=== PATIENT | male | born 1980 | race Caucasian/White ===

== ENCOUNTER 2025-10-22 16:05 | Emergency (ER) | payer SELFPAY ==
--- NOTE | ~2025-10-22 | XR_ITS ---
EXAMINATION: XR chest 2V 10/22/2025 16:47 INDICATION: Chest palpitations PROCEDURE: 2 view chest COMPARISON: No prior studies for comparison. FINDINGS: The lungs are clear. The cardiomediastinal silhouette is within normal limits. There are no pleural effusions. There is no pneumothorax suspected. There is scoliosis. There are cholecystectomy clips. IMPRESSION: 1: NO ACUTE CARDIOPULMONARY DISEASE. Reviewed, dictated and finalized at location [facility]. [employer]IST
--- NOTE | 2025-10-22 16:12 | ED_ITS ---
HPI - Chest Pain General Chief Complaint: Chest Pain <HUMAIRA Chandler Last Filed: 10/22/25 16:22> Stated Complaint: palpatations hr over 100 chest pain <HUMAIRA Chandler Last Filed: 10/22/25 16:22> Time Seen by Provider: 10/22/25 16:13 <HUMAIRA Chandler Last Filed: 10/22/25 16:22> Focused HPI: Patient is a 45 y/o male, with PMH of HLD, DM, who presents to the ED with c/o palpitations and chest tightness. Patient reports he began feeling dizzy on Tuesday. He checked his pulse at that time and states his pulse was over 100 BPM. States he checked his pulse several times throughout the day and HR persistently elevated above 100- ranging from 105-115. Has had 1 previous episode of similar sx's in the past which was thought to be related to Rybelsus, which was a new medication at that time. Denies currently feeling his heart race. Does report slight dizziness currently. C/o chest tightness. Denies SOB. Does not see a retail cosmetics sales beauty advisor. Denies smoking. FHx of heart disease in mother. GENERAL: Well-appearing, well-nourished, and in no acute distress. HEAD: Normocephalic, atraumatic. CHEST: Clear to auscultation. ?No respiratory distress. HEART: Tachycardic with regular rhythm.? NEURO: ?Alert and oriented x3. Patient screened in triage and initial orders placed.? ?Additional care and disposition to be based upon?diagnostic testing and treatment. <HUMAIRA Chandler Last Filed: 10/22/25 16:22> Source: patient <HUMAIRA Chandler Last Filed: 10/22/25 16:22> Mode of arrival: ambulatory <HUMAIRA Chandler Last Filed: 10/22/25 16:22> Limitations: no limitations <HUMAIRA Chandler Last Filed: 10/22/25 16:22> History of Present Illness HPI narrative: agree with the HPI above <Dane Marie MD - Last Filed: 10/23/25 04:44> Related Data Allergies/Adverse Reactions: Allergies Allergy/AdvReac Type Severity Reaction Status Date / Time No Known Allergies Allergy Mild Unverified 09/21/08 16:39 <Mary Daley PA-C - Last Filed: 10/22/25 16:22> Review of Systems 2 Review of Systems: as reviewed above in HPI <Dane Marie MD - Last Filed: 10/23/25 04:44> All systems reviewed & are unremarkable except as noted in HPI and below < Dane Marie MD - Last Filed: 10/23/25 04:44> Exam 2 Narrative: GENERAL: [Well-appearing, well-nourished, and in no acute distress.] HEAD: [Normocephalic, atraumatic.] EYES: [PERRLA and EOMI.] ENT: Nares clear, no rhinorrhea or epistaxis. Mucous membranes moist. NECK: Supple. CHEST: [Clear to auscultation. No respiratory distress.] HEART: [Regular rate and rhythm]. No murmur heard. [Normal peripheral pulses.] ABDOMEN: [Soft, nondistended], [nontender], [No rigidity or guarding] EXTREMITIES: Normal range of motion. [No edema.] SKIN: Warm, dry, no rash. NEURO: [No focal deficits]. Alert and oriented [x3.] PSYCH: [Normal mood and affect.] <Dane Marie MD - Last Filed: 10/23/25 04:44> Course Vital Signs Vital signs: Vital Signs Temperature 36.4 C 10/22/25 16:21 Pulse Rate 114 H 10/22/25 16:21 Respiratory Rate 17 10/22/25 16:21 Blood Pressure 159/77 H 10/22/25 16:21 Pulse Oximetry 100 10/22/25 16:21 Oxygen Delivery Room Air 10/22/25 16:21 Temperature 36.3 C L 10/22/25 22:50 Pulse Rate 88 10/23/25 00:23 Respiratory Rate 15 10/23/25 00:23 Blood Pressure 135/98 H 10/23/25 00:23 Pulse Oximetry 99 10/23/25 00:23 Oxygen Delivery Room Air 10/23/25 00:19 <Mary Daley PA-C - Last Filed: 10/22/25 16:22> Vital Signs Temperature 36.4 C 10/22/25 16:21 Pulse Rate 114 H 10/22/25 16:21 Respiratory Rate 17 10/22/25 16:21 Blood Pressure 159/77 H 10/22/25 16:21 Pulse Oximetry 100 10/22/25 16:21 Oxygen Delivery Room Air 10/22/25 16:21 Temperature 36.3 C L 10/22/25 22:50 Pulse Rate 88 10/23/25 00:23 Respiratory Rate 15 10/23/25 00:23 Blood Pressure 135/98 H 10/23/25 00:23 Pulse Oximetry 99 10/23/25 00:23 Oxygen Delivery Room Air 10/23/25 00:19 <Dane Marie MD - Last Filed: 10/23/25 04:44> MDM MDM Narrative Medical decision making narrative: MSE by YOKO in triage <Mary Daley PA-C - Last Filed: 10/22/25 16:22> MSE by YOKO in triage. 45 y/o male, with PMH of HLD, DM, who presents to the ED with c/o palpitations and chest tightness. Patient reports he began feeling dizzy on Tuesday. He checked his pulse at that time and states his pulse was over 100 BPM. States he checked his pulse several times throughout the day and HR persistently elevated above 100- ranging from 105-115. Has had 1 previous episode of similar sx's in the past which was thought to be related to Rybelsus, which was a new medication at that time. Denies currently feeling his heart race. Does report slight dizziness currently. C/o chest tightness. Denies SOB. Does not see a retail cosmetics sales beauty advisor. Denies smoking. FHx of heart disease in mother. patient has a benign physical examination. No tachycardia present. No symptoms at this time but he states heart rate has been elevated 110s. No significant elevations above this. No fever. No hypoxemia or significant blood pressure concerns. Possibility some dehydration versus electrolyte abnormality versus low suspicion cardiac in origin. Cardiac workup obtained and dimer/troponin are negative as well as a normal EKG and chest x-ray. Normal electrolytes. No acute findings or emergent concerns. Safe for discharge with PCP follow-up for further care. Return precautions described. <Dane Marie MD - Last Filed: 10/23/25 04:44> Differential Diagnosis Differential Diagnosis: Possibility some dehydration versus electrolyte abnormality versus low suspicion cardiac in origin. <Dane Marie MD - Last Filed: 10/23/25 04:44> Lab Data Result diagrams: 10/22/25 16:38 10/22/25 16:38 <Mary Daley PA-C - Last Filed: 10/22/25 16:22> Labs: Lab Results 10/22/25 10/22/25 Range/Units 16:38 23:46 WBC 10.1 H (4.5-10.0) K/mm3 RBC 4.91 (4.6-6.20) M/mm3 Hgb 15.0 (14.0-18.0) g/dL Hct 42.5 (42.0-52.0) % MCV 86.6 (80-100) fl MCH 30.5 (26-34) pg MCHC 35.3 (32-36) g/dl RDW 11.9 (11.5-14.5) % Plt Count 260 (150-375) k/mm3 MPV 9.9 (7.4-10.4) fl Immature Gran % (Auto) 0.3 (0-0.5) % Neut % (Auto) 80.1 H (45.5-73.1) % Lymph % (Auto) 12.9 L (18.3-44.2) % [place] % (Auto) 5.5 (2.6-8.5) % Eos % (Auto) 0.7 (0-4.4) % Baso % (Auto) 0.5 (0.2-1.2) % Lymph # (Auto) 1.30 (0.9-3.2) K/mm3 [place] # (Auto) 0.6 (0.1-0.6) K/mm3 Eos # (Auto) 0.1 (0-0.3) K/mm3 Baso # (Auto) 0.1 (0.0-0.1) K/mm3 Abs Immat Gran (auto) 0.03 (0.00-0.031) K/mm3 Absolute Neuts (auto) 8.1 H (1.3-6.7) K/mm3 Absolute Nucleated RBC 0.000 (0.0-0.012) K/mm3 Nucleated RBC % 0.0 (0.0-0.2) % PT 13.4 (11.1-14.7) Seconds INR 1.0 APTT 27.4 (22.3-36.8) Seconds D-Dimer < 0.27 (<0.48) ug/mL Sodium 138 (137-145) mmol/L Potassium 4.2 (3.4-5.0) mmol/L Chloride 103 (98-107) mmol/L Carbon Dioxide 27 (22-30) mmol/L Anion Gap 8 (4-12) mmol/L BUN 16 (9-20) mg/dL Creatinine 0.88 (0.7-1.3) mg/dL Estim Creat Clear Calc 101 ml/min Estimated GFR > 60 (59 - ) Glucose 110 (65-110) mg/dL Calcium 9.8 (8.4-10.2) mg/dL Magnesium 2.0 (1.6-2.3) mg/dL Total Bilirubin 1.0 (0.2-1.3) mg/dL AST 25 (17-59) U/L ALT 23 (6-50) U/L Alkaline Phosphatase 59 (38-126) U/L Troponin I < 0.012 < 0.012 (0.000-0.034) ng/mL Total Protein 7.6 (6.3-8.2) g/dL Albumin 4.7 (3.5-5.1) g/dL TSH (Reflex) 1.300 (0.465-4.68) uIU/mL <Mary Daley PA-C - Last Filed: 10/22/25 16:22> Lab Results 10/22/25 10/22/25 Range/Units 16:38 23:46 WBC 10.1 H (4.5-10.0) K/mm3 RBC 4.91 (4.6-6.20) M/mm3 Hgb 15.0 (14.0-18.0) g/dL Hct 42.5 (42.0-52.0) % MCV 86.6 (80-100) fl MCH 30.5 (26-34) pg MCHC 35.3 (32-36) g/dl RDW 11.9 (11.5-14.5) % Plt Count 260 (150-375) k/mm3 MPV 9.9 (7.4-10.4) fl Immature Gran % (Auto) 0.3 (0-0.5) % Neut % (Auto) 80.1 H (45.5-73.1) % Lymph % (Auto) 12.9 L (18.3-44.2) % [place] % (Auto) 5.5 (2.6-8.5) % Eos % (Auto) 0.7 (0-4.4) % Baso % (Auto) 0.5 (0.2-1.2) % Lymph # (Auto) 1.30 (0.9-3.2) K/mm3 [place] # (Auto) 0.6 (0.1-0.6) K/mm3 Eos # (Auto) 0.1 (0-0.3) K/mm3 Baso # (Auto) 0.1 (0.0-0.1) K/mm3 Abs Immat Gran (auto) 0.03 (0.00-0.031) K/mm3 Absolute Neuts (auto) 8.1 H (1.3-6.7) K/mm3 Absolute Nucleated RBC 0.000 (0.0-0.012) K/mm3 Nucleated RBC % 0.0 (0.0-0.2) % PT 13.4 (11.1-14.7) Seconds INR 1.0 APTT 27.4 (22.3-36.8) Seconds D-Dimer < 0.27 (<0.48) ug/mL Sodium 138 (137-145) mmol/L Potassium 4.2 (3.4-5.0) mmol/L Chloride 103 (98-107) mmol/L Carbon Dioxide 27 (22-30) mmol/L Anion Gap 8 (4-12) mmol/L BUN 16 (9-20) mg/dL Creatinine 0.88 (0.7-1.3) mg/dL Estim Creat Clear Calc 101 ml/min Estimated GFR > 60 (59 - ) Glucose 110 (65-110) mg/dL Calcium 9.8 (8.4-10.2) mg/dL Magnesium 2.0 (1.6-2.3) mg/dL Total Bilirubin 1.0 (0.2-1.3) mg/dL AST 25 (17-59) U/L ALT 23 (6-50) U/L Alkaline Phosphatase 59 (38-126) U/L Troponin I < 0.012 < 0.012 (0.000-0.034) ng/mL Total Protein 7.6 (6.3-8.2) g/dL Albumin 4.7 (3.5-5.1) g/dL TSH (Reflex) 1.300 (0.465-4.68) uIU/mL <Dane Marie MD - Last Filed: 10/23/25 04:44> Imaging Data Radiologist's impression: ITS Impressions Chest X-Ray 10/22/25 16:51 IMPRESSION: 1: NO ACUTE CARDIOPULMONARY DISEASE. <Mary Daley PA-C - Last Filed: 10/22/25 16:22> ITS Impressions Chest X-Ray 10/22/25 16:51 IMPRESSION: 1: NO ACUTE CARDIOPULMONARY DISEASE. <Dane Marie MD - Last Filed: 10/23/25 04:44> Discharge Plan Discharge Clinical Impression: Heart palpitations, Episodic lightheadedness <Mary Daley PA-C - Last Filed: 10/22/25 16:22> Patient Disposition: Home <Mary Daley PA-C - Last Filed: 10/22/25 16:22> Condition: Stable <HUMAIRA Chandler Last Filed: 10/22/25 16:22> Instructions: Antibiotic Form, Heart Palpitations (DC) <HUMAIRA Chandler Last Filed: 10/22/25 16:22> Additional Instructions: laboratory studies and cardiac enzymes are normal. EKG unremarkable. No emergent concerns today so please follow-up with your regular primary care provider after this visit for further recommendations and they might refer you to a retail cosmetics sales beauty advisor for further evaluation of this is a persistent concern. Return with any emergent issues such as losing consciousness, chest pressure/pain, stroke symptoms. <Mary Daley PA-C - Last Filed: 10/22/25 16:22> Patient Language: Bulgarian <Mary Daley PA-C - Last Filed: 10/22/25 16:22> Follow-up/Referrals: PHYSICIAN,[employer] CONTROL ROOM OPERATOR [Primary Care Provider, Internal Medicine] <Mary Daley PA-C - Last Filed: 10/22/25 16:22> Time of Disposition: 00:30 <Mary Daley PA-C - Last Filed: 10/22/25 16:22> 00:30 <Dane Marie MD - Last Filed: 10/23/25 04:44>
--- NOTE | 2025-10-22 16:13 | ECG_ITS ---
Test Date: 2025-10-22 16:16:20 Measurements Intervals [place] Rate: 116 P: 55 NV: 155 QRS: 37 QRSD: 75 T: 29 QT: 301 QTc: 420 Interpretive Statements SINUS TACHYCARDIA BORDERLINE R WAVE PROGRESSION, ANTERIOR LEADS ABNORMAL ECG No previous ECG available for comparison Electronically Signed On 10-22-2025 19:07:26 [employer]SEMBLER [employer]ER by Casey Woods D.O.
[2025-10-22 16:21] VITALS: BP 159/77; PULSE 114; RESP 17; TEMP 36.4; O2SAT 100
[2025-10-22 16:58] LABS: Alanine Aminotransferase 23 U/L (6-50); Albumin Level 4.7 g/dL (3.5-5.1); Alkaline Phosphatase 59 U/L (38-126); Anion Gap 8 mmol/L (4-12); Aspartate Amino Transferase 25 U/L (17-59); Bilirubin,Total 1.0 mg/dL (0.2-1.3); Blood Urea Nitrogen 16 mg/dL (9-20); Calcium 9.8 mg/dL (8.4-10.2); Carbon Dioxide 27 mmol/L (22-30); Chloride 103 mmol/L (98-107); Estimated CRCL calculation 101 ml/min; Estimated Glomerular Filt Rate > 60; Glucose 110 mg/dL (65-110); Magnesium 2.0 mg/dL (1.6-2.3); Potassium 4.2 mmol/L (3.4-5.0); Sodium 138 mmol/L (137-145); Total Protein 7.6 g/dL (6.3-8.2)
[2025-10-22 17:07] LABS: Hematocrit 42.5 % (42.0-52.0); Hemoglobin 15.0 g/dL (14.0-18.0); Immature Granulocyte Percent A 0.3 % (0-0.5); Lymphocytes Absolute Auto 1.30 K/mm3 (0.9-3.2); Mean Corpuscular HGB Conc 35.3 g/dl (32-36); Mean Corpuscular Hemoglobin 30.5 pg (26-34); Mean Corpuscular Volume 86.6 fl (80-100); Nucleated Red Blood Cells Absolute Auto 0.000 K/mm3 (0.0-0.012); Nucleated Red Blood Cells Perc 0.0 % (0.0-0.2); Platelet Count Result 260 k/mm3 (150-375); Red Blood Count 4.91 M/mm3 (4.6-6.20); White Blood Count 10.1 K/mm3 (4.5-10.0)
[2025-10-22 17:09] LABS: Troponin I < 0.012 ng/mL (0.000-0.034)
[2025-10-22 17:17] LABS: INR 1.0; Prothrombin Time 13.4 Seconds (11.1-14.7)
[2025-10-22 17:18] LABS: Partial Thromboplastin Time 27.4 Seconds (22.3-36.8)
[2025-10-22 17:41] LABS: Thyroid Stimulating Hormone Reflex 1.300 uIU/mL (0.465-4.68)
[2025-10-22 19:53] VITALS: BP 122/80; PULSE 104; RESP 20; TEMP 36.2; O2SAT 98
[2025-10-22 22:50] VITALS: BP 142/73; PULSE 100; RESP 18; TEMP 36.3; O2SAT 98
--- NOTE | 2025-10-23 00:06 | ECG_ITS ---
Test Date: 2025-10-23 00:06:31 Measurements Intervals [place] Rate: 89 P: 51 GA: 148 QRS: 15 QRSD: 82 T: 35 QT: 349 QTc: 426 Interpretive Statements SINUS RHYTHM WITH SINUS ARRHYTHMIA LOW QRS VOLTAGE IN PRECORDIAL LEADS BASELINE ARTIFACT- I, II, AVR, AVL BORDERLINE ECG Compared to ECG 10/22/2025 16:16:20 HEART RATE HAS DECREASED Electronically Signed On 10-23-2025 09:13:16 ACCOUNT SUPPORT MANAGER by Casey Woods D.O.
[2025-10-23 00:16] LABS: Troponin I < 0.012 ng/mL (0.000-0.034)
[2025-10-23 00:19] VITALS: PULSE 92; O2SAT 97
[2025-10-23 00:23] VITALS: BP 135/98; PULSE 88; RESP 15; O2SAT 99
== END 2025-10-23 01:00 | disposition home or self-care (01) ==
PROVIDERS: Physician Assistant; Emergency Provider Student in an Organized Health Care Education/Training Program
DX: R00.2 Palpitations (principal); R42 Dizziness and giddiness; E78.5 Hyperlipidemia, unspecified; E11.9 Type 2 diabetes mellitus without complications; R00.0 Tachycardia, unspecified
CPT/HCPCS: 36415; 71046; 80053; 83735; 84443; 84484; 85025; 85380; 85610; 85730; 93005; 99283